=== PATIENT | female | born 1965 | race Caucasian/White ===

== ENCOUNTER → 2017-05-17 | Emergency (ER) | payer OTHER ==
[~2017-05-17] VITALS: Ht 177.8 cm; Wt 124.7 kg
[~2017-05-17] MED LIST: COZAAR25 MG; HYDROCHLOROTHIA25 MG
== END | disposition home or self-care (01) ==
LOC: ER 15:44
DX: S01.321A Laceration with foreign body of right ear, initial encounter (principal); W26.8XXA Contact with other sharp object(s), not elsewhere classified, initial encounter; Y93.89 Activity, other specified; Y92.89 Other specified places as the place of occurrence of the external cause; Y99.8 Other external cause status